=== PATIENT | female | born 1995 | race Caucasian/White ===

== ENCOUNTER 2017-09-29 17:15 | Inpatient (IN) | payer OTHER ==
[~2017-09-29] VITALS: Ht 160 cm; Wt 72.6 kg
[~2017-09-29 17:15] MED LIST: BUPIVACAINE-MPF 0.5% 30 ML VIAL INJ ONE; ONDANSETRON 4 MG/2 ML VIAL ONE; OXYTOCIN 10 UNITS/ML VIAL ONE; ePHEDrine 50 MG/ML VIAL ONE
[2017-09-29 17:23] VITALS: BP 114/61
[2017-09-29] MEDS ORDERED: TERBUTALINE 1 MG/ML VIAL SUBQ ONE ×3 (17:49→23:14)
[2017-09-29] MEDS ORDERED: TERBUTALINE 1 MG/ML VIAL SUBQ SCH (17:50)
[2017-09-29 18:54] LABS: BILIRUBIN,URINE NEGATIVE (NEGATIVE); BLOOD, URINE 2+ (NEGATIVE); COLOR,URINE YELLOW (YELLOW); LEUKOCYTE ESTERASE ,URINE NEGATIVE (NEGATIVE); NITRITE, URINE NEGATIVE (NEGATIVE); UGLUCOSE NEGATIVE (NEGATIVE)
[2017-09-29 18:54] LABS: BASOPHILS % (AUTO) 0.1 % (0.0-2.0); EOSINOPHILS % (AUTO) 0.2 % (0.0-4.0); HEMATOCRIT 31.8 % (36-48); HEMOGLOBIN 10.1 g/dL (12.0-16.0); LYMPHOCYTES # (AUTO) 2.5 K/uL (2.5-16.5); LYMPHOCYTES % (AUTO) 24.4 % (20.5-51.1); MEAN CORPUSCULAR HEMOGLOBIN 25 pg (27-31); MEAN CORPUSCULAR HGB CONC 32 g/dL (33-37); MEAN CORPUSCULAR VOLUME 79.8 fL (80-94); MONOCYTES # (AUTO) 0.7 K/uL (0.8-1.0); NEUTROPHILS % (AUTO) 68.3 % (42.2-75.2); PLATELET COUNT (AUTO) 279 K/uL (140-450); RED BLOOD CELL COUNT(AUTO) 3.99 MIL/uL (4.20-5.40); RED CELL DISTRIBUTION WIDTH 15.6 % (11.6-13.7); WHITE BLOOD COUNT (AUTO) 10.3 K/uL (4.8-10.8)
[2017-09-29 18:56] LABS: APPEARANCE,URINE HAZY (CLEAR)
[2017-09-29 18:58] LABS: RBC,URINE 11-20 (MOD) /HPF (0-5); URINE AMORPHOUS URATE 3+ /HPF (None Seen); WBC,URINE 0-5 (RARE) /HPF (0-5)
[2017-09-29 19:29] LABS: PROTHROMBIN TIME 9.5 secs (10.8-13.4)
[2017-09-29] MEDS ORDERED: MORPHINE SULFATE 10 MG/ML SYR IM PRN (19:40)
[2017-09-29] MEDS ORDERED: LACTATED RINGERS 1,000 ML IV SCH (20:00)
[2017-09-29] MEDS ORDERED: NIFEdipine 10 MG CAPLF ONE ×3 (20:21→21:15)
[2017-09-29] MEDS ORDERED: BETAMETH ACET/BETAMETH NA PH 30 MG/5 ML VIAL IM ONE (20:22)
[2017-09-29] MEDS: NIFEdipine 10 MG CAPLF PO SCH ×3 (20:44→21:15)
[2017-09-29] MEDS ORDERED: MORPHINE SULFATE 10 MG/ML SYR ONE (20:48)
[2017-09-29] MEDS ORDERED: BETAMETH ACET/BETAMETH NA PH 30 MG/5 ML VIAL IM SCH (21:00)
[2017-09-30] MEDS ORDERED: NIFEdipine 10 MG CAPLF PO SCH
[2017-09-30] MEDS ORDERED: CARBOPROST 250 MCG/ML AMP IM PRN (00:20)
[2017-09-30] MEDS ORDERED: CLINDAMYCIN 900 MG in DEXTROSE 5% 100 ML IV SCH (00:20)
[2017-09-30] MEDS ORDERED: METHYLERGONOVINE 0.2 MG/ML AMP IM PRN (00:20)
[2017-09-30 00:42] LABS: ALBUMIN 2.7 g/dL (3.4-5.0); ANION GAP 13.8 (8-16); CARBON DIOXIDE 25.9 mmol/L (21-32); CREATININE 0.5 mg/dL (0.6-1.3); POTASSIUM 3.7 mmol/L (3.5-5.1); TOTAL BILIRUBIN 0.5 mg/dL (0.0-1.0)
[2017-09-30] MEDS ORDERED: ONDANSETRON 4 MG/2 ML VIAL IVP ONE (03:00)
[2017-09-30] MEDS ORDERED: OXYTOCIN 10 UNITS/ML VIAL IM ONE (03:00)
[2017-09-30] MEDS ORDERED: ePHEDrine 50 MG/ML VIAL IV ONE (03:00)
[2017-09-30] MEDS ORDERED: OXYTOCIN 10 UNITS/ML VIAL ONE (03:02)
[2017-09-30] MEDS ORDERED: KETAMINE 500 MG/5 ML VIAL ONE (03:16)
[2017-09-30] MEDS ORDERED: fentaNYL 0.05 MG/ML VIAL ONE (03:16)
[2017-09-30] MEDS ORDERED: MIDAZOLAM 2 MG/2 ML VIAL ONE (03:16)
[2017-09-30] MEDS ORDERED: MORPHINE PRES FREE 10 MG/10 ML AMP IV ONE (03:17)
[2017-09-30] MEDS ORDERED: BUPIVACAINE-MPF 0.5% 30 ML VIAL INJ ONE (03:19)
[2017-09-30] MEDS ORDERED: CLINDAMYCIN 900 MG/6 ML VIAL IV ONE (03:51)
[2017-09-30] MEDS ORDERED: CLINDAMYCIN 600 MG in DEXTROSE 5% 50 ML IV SCH (04:00)
[2017-09-30] MEDS ORDERED: CARBOPROST 250 MCG/ML AMP IM ONE (04:20)
[2017-09-30] MEDS ORDERED: KETOROLAC 30 MG/ML VIAL IVP PRN ×2 (04:55→05:40)
[2017-09-30] MEDS ORDERED: ONDANSETRON 4 MG/2 ML VIAL IVP PRN (04:55)
[2017-09-30] MEDS ORDERED: diphenhydrAMINE 50 MG/ML VIAL IVP PRN (04:55)
[2017-09-30] MEDS ORDERED: diphenhydrAMINE 50 MG/ML VIAL ONE (05:24)
[2017-09-30] MEDS ORDERED: OXYTOCIN 20 UNITS in LACTATED RINGERS 1,000 ML IV SCH (05:37)
[2017-09-30] MEDS ORDERED: MEASLES, MUMPS, AND RUBELLA 1 VIAL SQVAC PRN (05:40)
[2017-09-30] MEDS ORDERED: HYDROmorphone 1 MG/ML AMP IVP PRN (05:40)
--- NOTE | 2017-09-30 09:18 | NUR ---
PATIENT HAS BEEN SCREENED AND CATEGORIZED LOW NUTRITION RISK. PATIENT WILL BE SEEN WITHIN 7 DAYS OF ADMISSION. 10/06/[address]
[2017-10-01 10:57] LABS: BASOPHILS % (AUTO) 0.3 % (0.0-2.0); HEMATOCRIT 28.7 % (36-48); HEMOGLOBIN 8.9 g/dL (12.0-16.0); LYMPHOCYTES # (AUTO) 3.1 K/uL (2.5-16.5); LYMPHOCYTES % (AUTO) 18.6 % (20.5-51.1); MEAN CORPUSCULAR HEMOGLOBIN 25 pg (27-31); MEAN CORPUSCULAR HGB CONC 31 g/dL (33-37); MEAN CORPUSCULAR VOLUME 80.1 fL (80-94); MONOCYTES # (AUTO) 1.2 K/uL (0.8-1.0); MONOCYTES % (AUTO) 7.4 % (1.7-9.3); NEUTROPHILS # (AUTO) 12.5 K/uL (1.8-7.7); NEUTROPHILS % (AUTO) 73.7 % (42.2-75.2); PLATELET COUNT (AUTO) 276 K/uL (140-450); RED BLOOD CELL COUNT(AUTO) 3.58 MIL/uL (4.20-5.40); RED CELL DISTRIBUTION WIDTH 15.9 % (11.6-13.7); WHITE BLOOD COUNT (AUTO) 16.9 K/uL (4.8-10.8)
[2017-10-01] MEDS ORDERED: ACETAMINOPHEN 325 MG TAB PO PRN (22:00)
[2017-10-02] MEDS ORDERED: DOCUSATE SODIUM 100 MG GELCAP PO PRN (08:00)
[2017-10-02] MEDS ORDERED: BISACODYL 5 MG TABEC PO PRN (08:00)
[2017-10-02] MEDS ORDERED: IBUPROFEN 600 MG TAB PO PRN (08:00)
[2017-10-02] MEDS ORDERED: oxyCODONE/APAP 5/325 MG 1 TAB TAB PO PRN (08:00)
[2017-10-02] MEDS ORDERED: SIMETHICONE 80 MG TAB.CHEW PO PRN (08:00)
[2017-10-02] MEDS ORDERED: SODIUM PHOSPHATE 118 ML ENEM RC PRN (08:00)
== END 2017-10-02 21:35 | disposition home or self-care (01) | DRG 540 ==
LOC: MLD 17:15 → MFCC 21:20 → OBSVTOIN 09-30 00:10 → MFCC 09-30 06:00
PROVIDERS: ADMIT Obstetrics & Gynecology; ATTEND Obstetrics & Gynecology
PROC: 10D00Z1 Extraction of Products of Conception, Low, Open Approach (ICD-10-PCS; principal; 2017-09-30 03:00)
DX: O60.14X0 Preterm labor third trimester with preterm delivery third trimester, not applicable or unspecified (principal); O99.824 Streptococcus B carrier state complicating childbirth; O34.211 Maternal care for low transverse scar from previous cesarean delivery; Z37.0 Single live birth; Z3A.35 35 weeks gestation of pregnancy
CPT/HCPCS: G0378 ×7; 36415; 51702; 76805; 80053; 81001; 85025; 85379; 85384; 85610; 85730; 86592; 86886; 86900; 86901; 90715; C1758; J0702; J1200; J1885; J2250; J2270; J2405; J2590; J3010; J3105; J3490; J7060; J7120; Q0092